=== PATIENT | female | born 1995 | race Caucasian/White ===

== ENCOUNTER → 2017-02-22 | Outpatient (CLI) | payer OTHER ==
[~2017-02-22] MED LIST: COLACE100 MG PO
== END ==
LOC: KOH-I 02-06 14:00
DX: M66.272 Spontaneous rupture of extensor tendons, left ankle and foot (principal)
CPT/HCPCS: 73721

== ENCOUNTER 2017-03-21 13:21 | Outpatient (CLI) | payer OTHER ==
[2017-03-21 14:55] LABS: HEMOGLOBIN 11.6 gm/dl (12.3-15.3); RED BLOOD COUNT 4.08 M/UL (4.00-5.10); WHITE BLOOD COUNT 12.2 K/UL (4.5-11.0)
[2017-03-21 15:28] LABS: BUN/CREATININE RATIO 20 (0-10)
== END 2017-03-21 17:58 | disposition home or self-care (01) ==
LOC: GENOP 13:21
PROVIDERS: Obstetrics & Gynecology
DX: O99.89 Other specified diseases and conditions complicating pregnancy, childbirth and the puerperium (principal); O21.2 Late vomiting of pregnancy; R10.9 Unspecified abdominal pain; Z3A.24 24 weeks gestation of pregnancy
CPT/HCPCS: 36415; 80053; 81001; 82150; 82731; 82962; 83690; 85025; 87077; 87086; 87186; 96360; 96361; J7120; Q0162

== ENCOUNTER 2017-04-18 20:51 | Outpatient (CLI) | payer OTHER ==
[2017-04-18 22:11] LABS: HEMOGLOBIN 10.8 gm/dl (12.3-15.3); RED BLOOD COUNT 3.76 M/UL (4.00-5.10); WHITE BLOOD COUNT 7.4 K/UL (4.5-11.0)
[2017-04-18 22:26] LABS: BUN/CREATININE RATIO 23 (0-10)
== END 2017-04-19 00:35 | disposition home or self-care (01) ==
LOC: GENOP 20:51
PROVIDERS: Obstetrics & Gynecology
DX: O99.89 Other specified diseases and conditions complicating pregnancy, childbirth and the puerperium (principal); R10.9 Unspecified abdominal pain; Z3A.28 28 weeks gestation of pregnancy
CPT/HCPCS: 36415; 80053; 81001; 82150; 83690; 85025; 96372; J0696

== ENCOUNTER 2017-04-23 17:12 | Observation (INO) | payer OTHER ==
[2017-04-23 19:10] LABS: HEMOGLOBIN 10.9 gm/dl (12.3-15.3); RED BLOOD COUNT 3.82 M/UL (4.00-5.10); WHITE BLOOD COUNT 9.9 K/UL (4.5-11.0)
== END 2017-04-24 14:00 | disposition home or self-care (01) ==
LOC: GENOP 17:12 → OB 04-24 12:14
PROVIDERS: ADMIT Obstetrics & Gynecology
DX: O99.89 Other specified diseases and conditions complicating pregnancy, childbirth and the puerperium (principal); M54.9 Dorsalgia, unspecified; R10.31 Right lower quadrant pain; R31.9 Hematuria, unspecified; O99.212 Obesity complicating pregnancy, second trimester; E66.01 Morbid (severe) obesity due to excess calories; F11.90 Opioid use, unspecified, uncomplicated; R11.0 Nausea; O10.912 Unspecified pre-existing hypertension complicating pregnancy, second trimester; O24.112 Pre-existing type 2 diabetes mellitus, in pregnancy, second trimester; E11.9 Type 2 diabetes mellitus without complications; Z3A.28 28 weeks gestation of pregnancy; Z79.2 Long term (current) use of antibiotics; Z79.899 Other long term (current) drug therapy; Z88.1 Allergy status to other antibiotic agents; Z88.6 Allergy status to analgesic agent; Z98.84 Bariatric surgery status; Z90.49 Acquired absence of other specified parts of digestive tract; Z87.442 Personal history of urinary calculi
CPT/HCPCS: 36415; 81001; 85025; 96360; 96361; 96374; 96376; G0378; J2405; J7120